=== PATIENT | female | born 1980 | race Two or more races ===

== ENCOUNTER 2017-06-19 09:08 | Day surgery (SDC) | payer OTHER ==
[~2017-06-19 09:08] MED LIST: Lactated Ringers 1,000 ML IV SCH
--- NOTE | 2017-06-19 09:43 | PCM.PREANE ---
Preanesthetic Assessment - Anesthesia/Transfusion/Family Hx Anesthesia History: Prior Anesthesia Without Reaction Family History of Anesthesia Reaction: No Transfusion History: No Prior Transfusion(s) - Review of Systems General: No Symptoms Pulmonary: No Symptoms Cardiovascular: No Symptoms Neurological: No Symptoms Other: Reports: None - Physical Assessment NPO Status Date: 06/18/17 O2 Sat by Pulse Oximetry: 99 Respiratory Rate: 16 Vital Signs: Last Vital Signs Temp 36.4 C 06/19/17 09:22 Pulse 79 06/19/17 09:22 Resp 16 06/19/17 09:22 BP 119/67 06/19/17 09:22 Pulse Ox 99 06/19/17 09:22 Height: 1.45 m Weight: 52.617 kg ASA Class: 2 Mental Status: Alert & Oriented x3 Dentition: Reports: Normal Dentition ROM/Head Extension: Full Lungs: Clear to Auscultation, Normal Respiratory Effort Cardiovascular: Regular Rate, Regular Rhythm - Lab Values: Laboratory Last Values Urine HCG, Qual NEGATIVE (NEGATIVE) 06/19/17 09:20 - Allergies Allergies/Adverse Reactions: Allergies Allergy/AdvReac Type Severity Reaction Status Date / Time No Known Allergies Allergy Verified 06/13/17 09:24 - Anesthesia Plan Pre-Op Medication Ordered: None - Acknowledgements Anesthesia Type Planned: MAC Pt an Appropriate Candidate for the Planned Anesthesia: Yes Alternatives and Risks of Anesthesia Discussed w Pt/Guardian: Yes Pt/Guardian Understands and Agrees with Anesthesia Plan: Yes PreAnesthesia Questionnaire Respiratory History: Reports: Asthma Other Respiratory History: sports induced asthma Gastrointestinal History: Reports: Other (See Below) Other Gastrointestinal History: epigastric discomfort, 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 History: Reports: None 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
[2017-06-19] MEDS ORDERED: Midazolam 1 MG/ML 2 ML SDV ONE (10:07)
[2017-06-19] MEDS ORDERED: Lidocaine 2% 5 ML SDV ONE (10:07)
[2017-06-19] MEDS ORDERED: fentaNYL 100 MCG/2 ML SDV ONE (10:07)
[2017-06-19] MEDS ORDERED: Propofol 200 MG/20 ML SDV ONE (10:07)
--- NOTE | 2017-06-19 11:16 | PCM.OPNOTE ---
- General Post-Op/Procedure Note Date of Surgery/Procedure: 06/19/17 Operative Procedure(s): egd w bx. colonoscopy w random bx Findings: see dict [id number] Pre Op Diagnosis: abd pain and diverticulosis Post-Op Diagnosis: Same Anesthesia Technique: Moderate Sedation Primary Surgeon: Bassem Garcia Pathology: egd w bx colonoscopy w random bx Complications: None Condition: Good
--- NOTE | 2017-06-19 11:27 | PCM.POSTAN ---
POST ANESTHESIA ASSESSMENT - MENTAL STATUS Mental Status: Alert, Oriented - RESPIRATORY Respiratory Status: Respiratory Rate WNL, Airway Patent, O2 Saturation Stable - CARDIOVASCULAR CV Status: Pulse Rate WNL, Blood Pressure Stable - GASTROINTESTINAL GI Status: No Symptoms - PAIN Pain Score: 0 - POST OP HYDRATION Hydration Status: Adequate & Stable
--- NOTE | 2017-06-19 12:02 | PCM48HPAN ---
Post Anesthesia Note - EVALUATION WITHIN 48HRS OF ANESTHETIC Vital Signs in Normal Range: Yes Patient Participated in Evaluation: Yes Respiratory Function Stable: Yes Airway Patent: Yes Cardiovascular Function Stable: Yes Hydration Status Stable: Yes Pain Control Satisfactory: Yes Nausea and Vomiting Control Satisfactory: Yes Mental Status Recovered: Yes
--- NOTE | 2017-06-19 12:32 | OR ---
SURGEON: Bassem Garcia MD DATE OF PROCEDURE: 06/19/2017 PREOPERATIVE DIAGNOSES: Abdominal pain and acid reflux. POSTOPERATIVE DIAGNOSES: 1. EGD diagnosis is gastroesophageal reflux disease. 2. Colonoscopy diagnosis is mild diverticulosis. PROCEDURE PERFORMED: Esophagogastroduodenoscopy with biopsy and colonoscopy with biopsy. EGD FINDINGS: 1. The patient is easily sedated with HAIR SAMPLE MATCHER and Diprivan. The patient is soundly snoring. 2. The patient's oropharynx and proximal esophagus are free of disease. GE junction at 40 shows mild salmon color change consistent with acid reflux and stomach rugae is normal in appearance and antrum is mildly inflamed. Duodenum was grossly normal in appearance and there is no food, blood, ulcer, or bile observed in the stomach. Retroflexed look at the fundus of stomach, there was no hiatal hernia. Biopsy done at antrum, body, GE junction at 40, and sucked out the air while scope pulling out. PROCEDURE IN DETAIL: The patient was taken to the endoscopy room, and with the HAIR SAMPLE MATCHER, Diprivan was administered. A well-lubricated EGD scope was gently inserted through the oropharynx, down the esophagus, passing through the gastroesophageal junction, into the stomach. The mucosa was examined upon the passage. Any etiology will be noted. Once in the stomach, we continued to advance to the distal antrum, passed through the pylorus into the second portion of the duodenum. Again, the mucosa was examined for any abnormality and etiology. The scope was then retrieved back to the stomach and then retroflexed to look at the fundus of the stomach. If a biopsy was indicated, we will biopsy the antrum, body, and gastroesophageal junction. The air will be sucked out while the scope is retrieved to reduce the patient's discomfort. The patient tolerated the procedure well. There were no intraoperative complications. Dr. Garcia was present through the whole procedure. Prior to surgery, a time-out had been called, the patient identified, procedure identified and antibiotic administered. COLONOSCOPY FINDINGS: 1. The patient is easily sedated with HAIR SAMPLE MATCHER and Diprivan. The patient is soundly snoring. 2. Bowel prep is average to above average, very little liquid stool. 3. The patient's colon rather straight forward. Cecum indicated by ileocecal fold, one-to-one indentation, light immittance and appendiceal orifice. Mucosa examined. Upon scope pulling out, the patient has mild diverticulosis on the left colon. No signs or symptoms of diverticulitis. No polyp, mass, growth, inflammation, stricture, ulceration, AV malformation, none of those and the patient has mild internal hemorrhoid and no external hemorrhoids. The patient would benefit from repeat colonoscopy 10 years from today or if clinically indicated otherwise. PROCEDURE IN DETAIL: The patient was taken to the endoscopy room. A time out was called, patient identified, and procedure identified. Diprivan was then administrated. Patient went from awake to sleep, hearing doctor talking or door closing is normal. Perineum inspection and digital examination were then performed. A well- lubricated colonoscope was gently inserted through the rectum, advanced past the rectosigmoid junction, the descending colon, splenic flexure, transverse colon, hepatic flexure, ascending colon, arrived to the cecum. Cecum was identified as dictated in the finding. Then the scope was carefully withdrawn while attention was paid to the mucosal surface for any abnormality. Air will be sucked out during the scope withdrawal. At the rectum, retroflexed to examine any rectal diseases, fistula or hemorrhoids. During mucosal examination, random bx was performed. Patient tolerated procedure well. There were no intraoperative complications, and Dr. Garcia was present throughout the whole procedure. KENJI / CHIP /[id number] RANDY
== END 2017-06-19 12:39 | disposition home or self-care (01) ==
LOC: MW.SDS 09:08
PROVIDERS: ATTEND Surgery
DX: K57.30 Diverticulosis of large intestine without perforation or abscess without bleeding (principal); K64.8 Other hemorrhoids; Z79.899 Other long term (current) drug therapy
CPT/HCPCS: 43239; 45378; 81025; J2250; J3010; J7120; 00813; 88305; 88312; J2704

== ENCOUNTER 2017-08-27 06:21 | Day surgery (SDC) | payer OTHER ==
--- NOTE | 2017-08-27 07:22 | PCM.PREANE ---
Preanesthetic Assessment - Anesthesia/Transfusion/Family Hx Anesthesia History: Prior Anesthesia Without Reaction Family History of Anesthesia Reaction: No Transfusion History: No Prior Transfusion(s) - Review of Systems General: No Symptoms Pulmonary: No Symptoms Cardiovascular: No Symptoms Gastrointestinal: No Symptoms Neurological: No Symptoms Other: Reports: None - Physical Assessment NPO Status Date: 08/26/17 O2 Sat by Pulse Oximetry: 98 Respiratory Rate: 16 Vital Signs: Last Vital Signs Temp 36.4 C 08/27/17 06:40 Pulse 71 08/27/17 06:40 Resp 16 08/27/17 06:40 BP 110/67 08/27/17 06:40 Pulse Ox 98 08/27/17 06:40 Height: 1.52 m Weight: 53.07 kg ASA Class: 1 Airway Class: Mallampati = 2 Dentition: Reports: Normal Dentition ROM/Head Extension: Full Lungs: Clear to Auscultation, Normal Respiratory Effort Cardiovascular: Regular Rate, Regular Rhythm - Lab Values: Laboratory Last Values WBC 6.01 K/uL (4.0-11.0) 08/26/17 17:18 RBC 4.60 M/uL (4.30-5.90) 08/26/17 17:18 Hgb 13.7 g/dL (12.0-16.0) 08/26/17 17:18 Hct 40.7 % (36.0-46.0) 08/26/17 17:18 MCV 88.5 fL (80.0-98.0) 08/26/17 17:18 MCH 29.8 pg (27.0-32.0) 08/26/17 17:18 MCHC 33.7 g/dL (31.0-37.0) 08/26/17 17:18 RDW Std Deviation 40.1 fl (28.0-62.0) 08/26/17 17:18 RDW Coeff of Felipe 13 % (11.0-15.0) 08/26/17 17:18 Plt Count 266 K/uL (150-400) 08/26/17 17:18 MPV 10.50 fL (7.40-12.00) 08/26/17 17:18 Nucleated RBC % 0.0 /100WBC 08/26/17 17:18 Nucleated RBCs # 0 K/uL 03/11/18 17:18 Potassium 3.9 mmol/L (3.5-5.1) 08/26/17 18:17 HCG, Quant 1.0 mIU/mL 08/26/17 17:18 Blood Type O POSITIVE 08/26/17 17:18 Antibody Screen NEGATIVE 08/26/17 17:18 - Allergies Allergies/Adverse Reactions: Allergies Allergy/AdvReac Type Severity Reaction Status Date / Time No Known Allergies Allergy Verified 08/27/17 06:44 - Anesthesia Plan Pre-Op Medication Ordered: None - Acknowledgements Anesthesia Type Planned: General Anesthesia Pt an Appropriate Candidate for the Planned Anesthesia: Yes Alternatives and Risks of Anesthesia Discussed w Pt/Guardian: Yes Pt/Guardian Understands and Agrees with Anesthesia Plan: Yes PreAnesthesia Questionnaire Respiratory History: Reports: Asthma Other Respiratory History: sports induced asthma Gastrointestinal History: Reports: None 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 History: Reports: 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 History: - Past Surgical History Head Surgeries/Procedures: Reports: None GI Surgical History: Reports: Colonoscopy, EGD Female Surgical History: Reports: Breast Implant, Section - SUBSTANCE USE Smoking Status *Q: Never Smoker Recreational Drug Use History: No - HOME MEDS Home Medications: Home Meds Albuterol [Ventolin HFA] 1 - 2 puff INH ASDIRECTED PRN 06/13/17 [History] - CURRENT (IN HOUSE) MEDS Current Meds: Current Medications Cefazolin Sodium/Dextrose 1 gm (/ Premix) 50 mls @ 100 mls/hr IV ONETIME ONE Stop: 08/27/17 08:29 Lactated Ringer's (Ringers, Lactated) 1,000 mls @ 125 mls/hr IV ASDIRECTED [place] Sodium Chloride (Saline Flush) 10 ml FLUSH ASDIRECTED PRN PRN Reason: Keep Vein Open Sodium Chloride (Saline Flush) 2.5 ml FLUSH ASDIRECTED PRN PRN Reason: Keep Vein Open
[2017-08-27] MEDS ORDERED: Methylene Blue 50 MG/10 ML Ampule ONE (07:26)
[2017-08-27] MEDS ORDERED: Lidocaine 2% 5 ML SDV ONE (07:27)
[2017-08-27] MEDS ORDERED: Bupivacaine 0.5% 30 ML SDV ONE (07:28)
[2017-08-27] MEDS ORDERED: Fluorescein 5 ML Vial ONE (07:28)
[2017-08-27] MEDS ORDERED: fentaNYL 250 MCG/5 ML SDV ONE (07:28)
[2017-08-27] MEDS ORDERED: fentaNYL 100 MCG/2 ML SDV ONE ×3 (07:28→11:00)
[2017-08-27] MEDS ORDERED: Midazolam 1 MG/ML 2 ML SDV ONE (07:28)
[2017-08-27] MEDS ORDERED: Propofol 200 MG/20 ML SDV ONE ×2 (07:28→10:17)
[2017-08-27] MEDS ORDERED: Bupivacaine 0.25% 10 ML SDV ONE (07:29)
[2017-08-27] MEDS ORDERED: Glycopyrrolate 0.2 MG/ML SDV ONE (07:34)
[2017-08-27] MEDS ORDERED: Ondansetron 4 MG/2 ML SDV ONE (07:34)
[2017-08-27] MEDS ORDERED: Rocuronium 10 MG/ML 10 ML Syringe ONE (07:34)
[2017-08-27] MEDS ORDERED: Ketorolac 30 MG/ML SDV ONE (07:34)
[2017-08-27] MEDS ORDERED: Neostigmine Methylsulfate 1 MG/ML 5 ML Syringe ONE (07:34)
[2017-08-27] MEDS ORDERED: Sodium Chloride 0.9% 2.5 ML Syringe FLUSH PRN (08:00)
[2017-08-27] MEDS ORDERED: ceFAZolin 1 GM in Premix Bag 1 BAG IV ONE (08:00)
[2017-08-27] MEDS ORDERED: Lactated Ringers 1,000 ML IV SCH (08:00)
[2017-08-27] MEDS ORDERED: Furosemide 40 MG/4 ML VIAL ONE (08:28)
[2017-08-27] MEDS ORDERED: Vasopressin 20 Units/1 ML MDV ONE (08:39)
[2017-08-27] MEDS ORDERED: fentaNYL 100 MCG/2 ML SDV IVPUSH PRN (09:03)
[2017-08-27] MEDS ORDERED: HYDROmorphone 2 MG/ML Syringe IVPUSH ONE (09:03)
[2017-08-27] MEDS ORDERED: Ketorolac 30 MG/ML SDV IVPUSH ONE (11:37)
[2017-08-27] MEDS ORDERED: Acetaminophen/oxyCODONE 325-5 MG Tab PO PRN (11:37)
[2017-08-27] MEDS ORDERED: Ketorolac 30 MG/ML SDV IVPUSH PRN (11:37)
[2017-08-27] MEDS ORDERED: Morphine 4 MG/ML Syringe IVPUSH PRN (11:37)
[2017-08-27] MEDS ORDERED: Promethazine 25 MG/ML SDV IM PRN (11:37)
[2017-08-27] MEDS ORDERED: Morphine 2 MG/ML Syringe IVPUSH PRN (11:37)
[2017-08-27] MEDS ORDERED: Ondansetron 4 MG/2 ML SDV IVPUSH PRN (11:37)
--- NOTE | 2017-08-27 11:53 | PCM.OPNOTE ---
- General Post-Op/Procedure Note Date of Surgery/Procedure: 08/27/17 Operative Procedure(s): Total Laparoscopic Hysterectomy , Bilateral salphingectomy Findings: EUA showed normal sized anterverted uterus Laparoscopy showed normal uterus , ovaries, Bilateral tubes ligated at the level of the ampulla region Fil[place] clips not seen Pre Op Diagnosis: Chronic Pelvic pain Post-Op Diagnosis: Chronic Pelvic pain Anesthesia Technique: General Mask Primary Surgeon: Mckay Lobo Secondary Surgeon: Noa English Anesthesia Provider: Nirav Morris Pathology: Uterus , Tubes and Ovaries Fluid Replacement, Intraop: 2,700 Output, Urine Amount: 330 EBL in mLs: 20 Complications: None Condition: Good
--- NOTE | 2017-08-27 12:37 | PCM.POSTAN ---
POST ANESTHESIA ASSESSMENT - MENTAL STATUS Mental Status: Alert, Oriented - RESPIRATORY Respiratory Status: Respiratory Rate WNL, Airway Patent, O2 Saturation Stable - CARDIOVASCULAR CV Status: Pulse Rate WNL, Blood Pressure Stable - GASTROINTESTINAL GI Status: No Symptoms - POST OP HYDRATION Hydration Status: Adequate & Stable
[2017-08-27] MEDS: Metoclopramide 10 MG/2 ML SDV IVPUSH SCH ×2 (13:33→20:49)
[2017-08-27] MEDS: Acetaminophen 1,000 MG in Premix Bag 1 BAG IV SCH ×2 (13:33→20:26)
[2017-08-27] MEDS: cefOXitin 1 GM in Premix Bag 1 BAG IV SCH ×2 (15:02→19:30)
[2017-08-27] MEDS: Acetaminophen/oxyCODONE 325-5 MG Tab PO PRN ×2 (17:00→20:53)
[2017-08-28] MEDS: Metoclopramide 10 MG/2 ML SDV IVPUSH SCH (03:51)
[2017-08-28] MEDS: Acetaminophen 1,000 MG in Premix Bag 1 BAG IV SCH (03:53)
[2017-08-28 05:51] LABS: CHLORIDE,CL 103 mmol/L (98-107); SODIUM,NA 138 mmol/L (136-145)
[2017-08-28] MEDS: Acetaminophen/oxyCODONE 325-5 MG Tab PO PRN (06:33)
[2017-08-28] MEDS ORDERED: Sodium Chloride 0.9% 10 ML Syringe FLUSH PRN (08:00)
--- NOTE | 2017-08-28 08:38 | PCM.SURGPN ---
- General Info Date of Service: 08/28/17 Date of Surgery/Procedure: 08/27/17 POD#: 1 Post-Op Diagnosis: Chronic Pelvic pain Functional Status: Reports: Pain Controlled, Tolerating Diet, Ambulating, Urinating - Review of Systems General: Reports: No Symptoms HEENT: Reports: No Symptoms Pulmonary: Reports: No Symptoms Cardiovascular: Reports: No Symptoms Gastrointestinal: Reports: No Symptoms 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: Reports: No Symptoms Musculoskeletal: Reports: No Symptoms Skin: Reports: No Symptoms Neurological: Reports: No Symptoms Psychiatric: Reports: No Symptoms - Patient Data Vitals - Most Recent: Last Vital Signs Temp 36.4 C 08/28/17 08:12 Pulse 77 08/28/17 08:12 Resp 18 08/28/17 08:12 BP 109/66 08/28/17 08:12 Pulse Ox 97 08/28/17 08:12 Weight - Most Recent: 53.07 kg I&O - Last 24 Hours: Intake & Output 08/27/17 08/28/17 08/28/17 22:59 06:59 14:59 Intake Total 515 860 Output Total 425 1450 Balance 90 -590 Lab Results Last 24 Hrs: Laboratory Results - last 24 hr 08/28/17 08/28/17 Range/Units 05:00 05:00 WBC 8.05 (4.0-11.0) K/uL RBC 3.92 L (4.30-5.90) M/uL Hgb 11.3 L (12.0-16.0) g/dL Hct 34.6 L (36.0-46.0) % MCV 88.3 (80.0-98.0) fL MCH 28.8 (27.0-32.0) pg MCHC 32.7 (31.0-37.0) g/dL RDW Std Deviation 40.7 (28.0-62.0) fl RDW Coeff of Felipe 13 (11.0-15.0) % Plt Count 231 (150-400) K/uL MPV 10.70 (7.40-12.00) fL Neut % (Auto) 72.2 (48.0-80.0) % Lymph % (Auto) 19.1 (16.0-40.0) % [place] % (Auto) 7.8 (0.0-15.0) % Eos % (Auto) 0.4 (0.0-7.0) % Baso % (Auto) 0.5 (0.0-1.5) % Neut # (Auto) 5.8 H (1.4-5.7) K/uL Lymph # (Auto) 1.5 (0.6-2.4) K/uL [place] # (Auto) 0.6 (0.0-0.8) K/uL Eos # (Auto) 0.0 (0.0-0.7) K/uL Baso # (Auto) 0.0 (0.0-0.1) K/uL Nucleated RBC % 0.0 /100WBC Nucleated RBCs # 0 K/uL Sodium 138 (136-145) mmol/L Potassium 3.8 (3.5-5.1) mmol/L Chloride 103 (98-107) mmol/L Carbon Dioxide 28.7 (21.0-32.0) mmol/L BUN 6 L (7.0-18.0) mg/dL Creatinine 0.7 (0.6-1.0) mg/dL Est Cr Clr Drug Dosing 77.50 mL/min Estimated GFR (MDRD) > 60.0 ml/min Glucose 99 (74-106) mg/dL Calcium 8.4 L (8.5-10.1) mg/dL Med Orders - Current: Current Medications Fentanyl (Sublimaze) 50 mcg IVPUSH Q5M PRN PRN Reason: Pain (severe 7-10) Stop: 08/28/17 09:03 Lactated Ringer's (Ringers, Lactated) 1,000 mls @ 125 mls/hr IV ASDIRECTED [facility] Last Admin: 08/27/17 14:20 Dose: 125 mls/hr Acetaminophen 1,000 mg/ Premix 100 mls @ 400 mls/hr IV Q8H [facility] Last Admin: 08/28/17 03:53 Dose: 400 mls/hr Ketorolac Tromethamine (Toradol) 30 mg IVPUSH Q6H PRN PRN Reason: Pain (severe 7-10) Stop: 09/01/17 11:37 Metoclopramide HCl (Reglan) 10 mg IVPUSH Q8H [facility] Last Admin: 08/28/17 03:51 Dose: 10 mg Morphine Sulfate (Morphine) 2 mg IVPUSH Q2H PRN PRN Reason: Pain (severe 7-10) Morphine Sulfate (Morphine) 4 mg IVPUSH Q2H PRN PRN Reason: Pain (severe 7-10) Ondansetron HCl (Zofran) 4 mg IVPUSH Q6H PRN PRN Reason: Nausea/Vomiting Oxycodone/Acetaminophen (Percocet 325-5 Mg) 1 tab PO Q4H PRN PRN Reason: Pain (moderate 4-6) Oxycodone/Acetaminophen (Percocet 325-5 Mg) 2 tab PO Q4H PRN PRN Reason: Pain (moderate 4-6) Last Admin: 08/28/17 06:33 Dose: 2 tab Promethazine HCl (Phenergan) 25 mg IM Q6H PRN PRN Reason: Nausea/Vomiting Sodium Chloride (Saline Flush) 10 ml FLUSH ASDIRECTED PRN PRN Reason: Keep Vein Open Sodium Chloride (Saline Flush) 2.5 ml FLUSH ASDIRECTED PRN PRN Reason: Keep Vein Open Discontinued Medications Bupivacaine HCl (Marcaine 0.5%) Confirm Administered Dose 30 ml .ROUTE .STK-MED ONE Stop: 08/27/17 07:29 Bupivacaine HCl (Sensorcaine-Mpf 0.25%) Confirm Administered Dose 20 ml .ROUTE .STK-MED ONE Stop: 08/27/17 07:30 Fentanyl (Sublimaze) Confirm Administered Dose 100 mcg .ROUTE .STK-MED ONE Stop: 08/27/17 07:29 Fentanyl (Sublimaze) Confirm Administered Dose 250 mcg .ROUTE .STK-MED ONE Stop: 08/27/17 07:29 Fentanyl (Sublimaze) Confirm Administered Dose 100 mcg .ROUTE .STK-MED ONE Stop: 08/27/17 09:18 Fentanyl (Sublimaze) Confirm Administered Dose 100 mcg .ROUTE .STK-MED ONE Stop: 08/27/17 11:01 Fluorescein Sodium (Ak-Fluor) Confirm Administered Dose 5 ml .ROUTE .STK-MED ONE Stop: 08/27/17 07:29 Furosemide (Lasix) Confirm Administered Dose 40 mg .ROUTE .STK-MED ONE Stop: 08/27/17 08:29 Glycopyrrolate (Robinul) Confirm Administered Dose 0.6 mg .ROUTE .STK-MED ONE Stop: 08/27/17 07:35 Hydromorphone HCl (Dilaudid) 0 mg IVPUSH ONETIME ONE Stop: 08/27/17 09:04 Last Admin: 08/27/17 13:51 Dose: Not Given Cefazolin Sodium/Dextrose 1 gm (/ Premix) 50 mls @ 100 mls/hr IV ONETIME ONE Stop: 08/27/17 08:29 Last Admin: 08/27/17 13:41 Dose: Not Given Cefazolin Sodium/Dextrose (Ancef) Confirm Administered Dose 50 mls @ as directed .ROUTE .STK-MED ONE Stop: 08/27/17 07:39 Cefoxitin Sodium 1 gm/ Premix 50 mls @ 100 mls/hr IV Q6H [facility] Stop: 08/27/17 20:29 Last Admin: 08/27/17 19:30 Dose: 100 mls/hr Ketorolac Tromethamine (Toradol) Confirm Administered Dose 30 mg .ROUTE .STK- MED ONE Stop: 08/27/17 07:35 Ketorolac Tromethamine (Toradol) 30 mg IVPUSH ONETIME ONE Stop: 08/27/17 11:38 Last Admin: 08/27/17 13:51 Dose: Not Given Lidocaine (Xylocaine-Mpf 2%) Confirm Administered Dose 10 ml .ROUTE .STK-MED ONE Stop: 08/27/17 07:28 Methylene Blue (Provayblue) Confirm Administered Dose 50 mg .ROUTE .STK-MED ONE Stop: 08/27/17 07:27 Midazolam HCl (Versed 1 Mg/Ml) Confirm Administered Dose 2 mg .ROUTE .STK-MED ONE Stop: 08/27/17 07:29 Neostigmine Methylsulfate (Neostigmine) Confirm Administered Dose 5 mg .ROUTE .STK-MED ONE Stop: 08/27/17 07:35 Ondansetron HCl (Zofran) Confirm Administered Dose 4 mg .ROUTE .STK-MED ONE Stop: 08/27/17 07:35 Propofol (Diprivan 20 Ml) Confirm Administered Dose 400 mg .ROUTE .STK-MED ONE Stop: 08/27/17 07:29 Propofol (Diprivan 20 Ml) Confirm Administered Dose 200 mg .ROUTE .STK-MED ONE Stop: 08/27/17 10:18 Rocuronium [place] (Zemuron) Confirm Administered Dose 100 mg .ROUTE .STK-MED ONE Stop: 08/27/17 07:35 Vasopressin (Vasopressin) Confirm Administered Dose 20 units .ROUTE .STK-MED ONE Stop: 08/27/17 08:40 - Exam Wound/Incisions: Dressing Dry and Intact General: Alert, Oriented HEENT: Pupils Equal Lungs: Clear to Auscultation Cardiovascular: Regular Rate, Regular Rhythm GI/Abdominal Exam: Normal Bowel Sounds Extremities: Normal Inspection Skin: Warm Psy/Mental Status: Alert - Problem List & Annotations (1) Status post laparoscopic hysterectomy SNOMED Code(s): 220868663 Code(s): Z90.710 - ACQUIRED ABSENCE OF BOTH CERVIX AND UTERUS Status: Acute Current Visit: Yes - Problem List Review Problem List Initiated/Reviewed/Updated: Yes - My Orders Last 24 Hours: Active Orders 24 hr Category Date Time Status Admission Status [Patient Status] [ADT] Routine ADT 08/27/17 13:25 Active Patient Status [ADT] Routine ADT 08/27/17 08:00 Active Patient Status [ADT] Routine ADT 08/27/17 11:37 Active Antiembolic Devices [RC] PER UNIT ROUTINE Care 08/27/17 08:00 Active Communication Order [RC] ROUTINE Care 08/27/17 14:59 Active Notify Provider Intake and Out [RC] ASDIRECTED Care 08/27/17 11:37 Active Notify Provider Vital Signs [RC] ASDIRECTED Care 08/27/17 11:37 Active Oxygen Therapy [RC] ASDIRECTED Care 08/27/17 11:37 Active RT Incentive Spirometry [RC] Q2HWA Care 08/27/17 11:37 Active Up With Assistance [RC] PER UNIT ROUTINE Care 08/27/17 11:37 Active Up ad Anastasia [RC] PER UNIT ROUTINE Care 08/27/17 11:37 Active Verify Patient Consent Obtain [RC] PER UNIT ROUTINE Care 08/27/17 08:00 Active Advance Diet Instructions [DIET] Diet 08/27/17 Dinner Active Regular Diet [DIET] Diet 08/28/17 Breakfast Active Acetaminophen [Ofirmev] 1,000 mg Med 08/27/17 12:00 Active Premix Bag 1 bag IV Q8H Acetaminophen/oxyCODONE [Percocet 325-5 MG] Med 08/27/17 11:37 Active 1 tab PO Q4H PRN Acetaminophen/oxyCODONE [Percocet 325-5 MG] Med 08/27/17 11:37 Active 2 tab PO Q4H PRN Ketorolac [Toradol] Med 08/27/17 11:37 Active 30 mg IVPUSH Q6H PRN Lactated Ringers [Ringers, Lactated] 1,000 ml Med 08/27/17 08:00 Active IV ASDIRECTED Metoclopramide [Reglan] Med 08/27/17 12:00 Active 10 mg IVPUSH Q8H Morphine Med 08/27/17 11:37 Active 2 mg IVPUSH Q2H PRN Morphine Med 08/27/17 11:37 Active 4 mg IVPUSH Q2H PRN Ondansetron [Zofran] Med 08/27/17 11:37 Active 4 mg IVPUSH Q6H PRN Promethazine [Phenergan] Med 08/27/17 11:37 Active 25 mg IM Q6H PRN Sodium Chloride 0.9% [Saline Flush] Med 08/28/17 08:00 Active 10 ml FLUSH ASDIRECTED PRN Sodium Chloride 0.9% [Saline Flush] Med 08/27/17 08:00 Active 2.5 ml FLUSH ASDIRECTED PRN fentaNYL [Sublimaze] Med 08/27/17 09:03 Active 50 mcg IVPUSH Q5M PRN Peripheral IV Discontinue [OM.PC] Routine Oth 08/27/17 11:37 Ordered Peripheral IV Insertion Adult [OM.PC] Urgent Oth 08/27/17 08:00 Ordered Sequential Compression Device [OM.PC] Per Unit Routine Oth 08/27/17 08:00 Ordered Sequential Compression Device [OM.PC] Per Unit Routine Oth 08/27/17 11:37 Ordered Resuscitation Status Routine Resus Stat 08/27/17 11:37 Ordered Medication Orders Fentanyl (Sublimaze) 50 mcg IVPUSH Q5M PRN PRN Reason: Pain (severe 7-10) Stop: 08/28/17 09:03 Lactated Ringer's (Ringers, Lactated) 1,000 mls @ 125 mls/hr IV ASDIRECTED [facility] Last Admin: 08/27/17 14:20 Dose: 125 mls/hr Acetaminophen 1,000 mg/ Premix 100 mls @ 400 mls/hr IV Q8H [facility] Last Admin: 08/28/17 03:53 Dose: 400 mls/hr Infusion: 08/27/17 20:41 Dose: 400 mls/hr Admin: 08/27/17 20:26 Dose: 400 mls/hr Infusion: 08/27/17 13:48 Dose: 400 mls/hr Admin: 08/27/17 13:33 Dose: 400 mls/hr Ketorolac Tromethamine (Toradol) 30 mg IVPUSH Q6H PRN PRN Reason: Pain (severe 7-10) Stop: 09/01/17 11:37 Metoclopramide HCl (Reglan) 10 mg IVPUSH Q8H [facility] Last Admin: 08/28/17 03:51 Dose: 10 mg Admin: 08/27/17 20:49 Dose: 10 mg Admin: 08/27/17 13:33 Dose: 10 mg Morphine Sulfate (Morphine) 2 mg IVPUSH Q2H PRN PRN Reason: Pain (severe 7-10) Morphine Sulfate (Morphine) 4 mg IVPUSH Q2H PRN PRN Reason: Pain (severe 7-10) Ondansetron HCl (Zofran) 4 mg IVPUSH Q6H PRN PRN Reason: Nausea/Vomiting Oxycodone/Acetaminophen (Percocet 325-5 Mg) 1 tab PO Q4H PRN PRN Reason: Pain (moderate 4-6) Oxycodone/Acetaminophen (Percocet 325-5 Mg) 2 tab PO Q4H PRN PRN Reason: Pain (moderate 4-6) Last Admin: 08/28/17 06:33 Dose: 2 tab Admin: 08/27/17 20:53 Dose: 2 tab Admin: 08/27/17 17:00 Dose: 2 tab Promethazine HCl (Phenergan) 25 mg IM Q6H PRN PRN Reason: Nausea/Vomiting Sodium Chloride (Saline Flush) 10 ml FLUSH ASDIRECTED PRN PRN Reason: Keep Vein Open Sodium Chloride (Saline Flush) 2.5 ml FLUSH ASDIRECTED PRN PRN Reason: Keep Vein Open - Assessment Assessment (Free Text/Narrative):: 37 yo s/p TLH /BS , stable - Plan Plan (Free Text/Narrative):: Pain control Discharge home Incentive spirometry Lovenox today
[2017-08-28] MEDS ORDERED: Enoxaparin 40 MG/0.4 ML Syringe SUBCUT ONE (09:00)
--- NOTE | 2017-08-28 09:46 | PCM48HPAN ---
Post Anesthesia Note - EVALUATION WITHIN 48HRS OF ANESTHETIC Vital Signs in Normal Range: Yes Patient Participated in Evaluation: No (per patient nurse) Respiratory Function Stable: Yes Airway Patent: Yes Cardiovascular Function Stable: Yes Hydration Status Stable: Yes Pain Control Satisfactory: Yes Nausea and Vomiting Control Satisfactory: Yes Mental Status Recovered: Yes Resp Rate: 18 - COMMENTS/OBSERVATIONS Free Text/Narrative:: Patient had just been discharged to home. Patient nurse states she was doing well.
--- NOTE | 2017-08-28 10:36 | OR ---
SURGEON: OREN LASSITER DATE OF PROCEDURE: 08/27/2017 PREOPERATIVE DIAGNOSIS: A 37-year-old, para 3, with chronic pelvic pain. POSTOPERATIVE DIAGNOSIS: A 37-year-old, para 3, with chronic pelvic pain. PROCEDURE: Total laparoscopic hysterectomy, bilateral salpingectomy, and cystoscopy. ESTIMATED BLOOD LOSS: About 20 mL. IV FLUIDS: 700. URINE OUTPUT: 330. SPECIMENS: Uterus and bilateral fallopian tubes. COMPLICATIONS: None. FINDINGS: A normal-sized anteverted uterus. The laparoscopy also showed transection of the right and left tubes at the ampullary region. Filshie clips were not seen. Despite exploration of the intestine and the abdomen, it was not noted. Bilateral jets noted with cystoscopy, and intact bladder was also noted. BRIEF HISTORY: The patient is a 37-year-old, para 3, previous , , and also BTL. The patient was complaining of pelvic pain for about 1 to 2 years. Pain has been getting worse. The patient had a CT scan done that showed possible migration of tubal cyst adjacent to the sigmoid colon. The patient has used OCPs in the past with no pain relief. Motrin and Tylenol were not helping. She wanted an hysterectomy and was consent for procedure after explaining the risk benefits and alternatives. DESCRIPTION OF PROCEDURE: The patient was taken to the operating room, where general anesthesia was performed without difficulty. The patient was placed in dorso lithotomy position with Sam stirrups. Both arms were tucked on both sides. Examination under anesthesia showed a normal-sized uterus. The patient was prepared and draped in the usual sterile fashion. A Rocha catheter was inserted. A bivalved speculum was used to expose the cervix. The anterior lip of the cervix was grasped with Allis forceps. The uterus was then sounded to 7 cm. The Advincula global sales director was then placed into the cervix. The tip of the Advincula was then inflated. The balloon was then inflated. Attention was then placed to the abdomen. Marcaine was infiltrated into the subumbilical fold. A small incision was made in the left upper quadrant. the left upper quadrant was entered via direct entry with the fiberoptic trocar. Upon confirmation of entry into the peritoneal cavity, the CO2 gas was then inflated to a pressure of 15 mmHg..Inspection showed no adhesions noted. As a result, a small incision was made at the subumbilical fold. Intraabdominal survey revealed normal-appearing liver, gallbladder, and spleen. Again, two 5 mm trocars were inserted into bilateral lower quadrants 2 fingerbreadths medial and anterior to the anterosuperior iliac spine and diagonal to the umbilicus. The patient was placed in trendelenberg to facilitate pelvic exposure. The ureters were identified, side. On the right and left side: The fallopian tube was sequentially dissected and transected all the way to the level of the cornua. Then, the round ligament was also identified and also transected to separate the broad ligament. Then, the ovarian ligament was dissected off the uterus. The broad ligament was . The bladder flap was created with the aid of the LigaSure device and the Harmonic. The bladder was dissected off the lower uterine segment and vagina. Also, the posterior peritoneum was exposed to the level of the uterosacral to expose the uterine vessels after being skeletonized with the aid of the LigaSure and Harmonic. The Advincula was also kept in tension in order to avoid ureteral injury. The LigaSure was then used to coagulate the uterine vessels at the colpotomy junction and above. With the aid of the Harmonic device, the vagina was entered and scored circumferentially at the cervicouterine junction. The uterosacral and cardinal ligaments were completely detached from the cervix. After completing this, attention was then placed to the vagina, where the manipulator bulb was deflated, and the cervix and uterus were then taken out of the vagina. The vaginal colpotomy that was created was then identified. A Espitia's stitch was placed from the posterior vagina to the uterus cephalad through the peritoneum back to the uterosacrals on the other side. The vaginal incision was then stitched in a transverse fashion. The Espitia was then tied to elevate the vagina. The cystoscopy was then performed, and that showed bilateral jets and bilateral integrity was confirmed. Attention was then paid into the abdomen for laparoscopy. The incision was noted to be hemostatic, and hemostasis was confirmed intra-abdominally with the pneumoperitoneum reduced to 5 mmHg. Trocar was then removed under direct guidance. The instruments were removed from the abdomen. Laparoscopic incision was stitched with 4-0 Monocryl. Steri-Strips were placed. Good hemostasis was noted in the abdomen. The vagina was then inspected and the vagina site was noted to be hemostatic. All instrument and pad counts were correct x2. The patient was taken to the recovery room in stable condition. TORIE SAUNDERS /[id number] MTDD
== END 2017-08-28 09:30 | disposition home or self-care (01) ==
LOC: MW.SDS 06:21 → MW.MS 11:37 → MW.SDS 08-28 09:30
PROVIDERS: ATTEND Obstetrics & Gynecology
DX: N80.0 Endometriosis of uterus (principal); N72 Inflammatory disease of cervix uteri; Z98.51 Tubal ligation status; Z79.899 Other long term (current) drug therapy
CPT/HCPCS: 36415; 58571; 80048; 84132; 84702; 85025; 85027; 86850; 86900; 86901; A9270; J0690; J0694; J1650; J1885; J1940; J2250; J2405; J2765; J3010; J7120; 00840; 88307; J2704